=== PATIENT | female | born 1985 | race Two or more races ===

== ENCOUNTER 2017-05-30 07:51 | Outpatient (CLI) | payer OTHER ==
[~2017-05-30] VITALS: Ht 165.1 cm; Wt 63.5 kg
[2017-05-30] MEDS ORDERED: FLONASE16 GM NASAL (10:17)
[2017-05-30] MEDS ORDERED: CEFUROXIME500 MG PO (10:17)
== END 2017-05-30 08:10 | disposition home or self-care (01) ==
LOC: OFIC 805 07:51
DX: J01.80 Other acute sinusitis (principal); J34.2 Deviated nasal septum